=== PATIENT | female | born 1975 | race American Indian/Alaskan Native ===

== ENCOUNTER 2022-01-23 15:10 | Emergency (ER) | payer OTHER ==
[2022-01-23 15:25] VITALS: BP 136/83
--- NOTE | 2022-01-23 16:21 | XRay Report ---
XR knee 1-2V LT, XR hip 2-3V LT INDICATION / CLINICAL INFORMATION: fall x 1day ago. COMPARISON: None available. FINDINGS: Pelvis, left hip: No acute fracture or malalignment. Mild osteoarthritis of both hips. SI joints and pubic symphysis are intact. No focal soft tissue abnormality. Calcified uterine fibroid. Left knee: No acute fracture or malalignment. No joint effusion. IMPRESSION: No acute osseous findings of the left hip or left knee. Signer Name: Gael Chauhan MD Signed: 01/23/2022 4:17 PM Workstation Name: [id number] (formerly known as [id number]
[2022-01-23] MEDS ORDERED: IBUPROFEN 800 MG TAB PO ONE (16:47)
--- NOTE | 2022-01-23 16:47 | Emergency Department Report ---
ED Fall HPI - General Chief Complaint: Fall Stated Complaint: L KNEE AND HIP PAIN AFTER FALL Time Seen by Provider: 01/23/22 16:27 Source: patient Mode of arrival: Ambulatory - History of Present Illness Initial Comments: 46 yo comes to ER sp mechanical fall yesterday. Pt slipped and fell on left hip and rotated her left knee. co left hip and knee pain Fall was witnessed. No down time. Ambulatory after fall and ambulatory to ER today. Denies hitting her head. Complaint: fall -: days(s) Fall From: standing Fall Witnessed: yes, by family Place Fall Occurred: home Loss of Consciousness: none Prolonged Down Time?: no Symptoms Prior to Fall: none Location - Extremities: Left: Knee Severity: mild Severity scale (0 -10): 3 Quality: aching Context: tripped/slipped Associated Symptoms: denies - Related Data Previous Rx's Medication Instructions Recorded Last Taken Type Ibuprofen [Motrin] 800 mg PO Q8HR PRN #30 tablet 01/23/22 Unknown Rx Allergies Allergy/AdvReac Type Severity Reaction Status Date / Time No Known Allergies Allergy Unverified 01/23/22 15:26 ED Review of Systems ROS: Stated complaint: L KNEE AND HIP PAIN AFTER FALL Other details as noted in HPI Comment: All other systems reviewed and negative ED Past Medical Hx - Past Medical History Previous Medical History?: Yes Hx Hypertension: Yes Hx Diabetes: Yes Hx Arthritis: Yes - Surgical History Past Surgical History?: No - Family History Family history: no significant - Social History Smoking Status: Current Every Day Smoker Substance Use Type: Alcohol - Medications Home Medications: Home Medications Medication Instructions Recorded Confirmed Last Taken Type Ibuprofen [Motrin] 800 mg PO Q8HR PRN #30 tablet 01/23/22 Unknown Rx ED Physical Exam - General Limitations: No Limitations General appearance: alert, in no apparent distress - Head Head exam: Present: atraumatic, normocephalic - Eye Eye exam: Present: normal appearance - ENT ENT exam: Present: mucous membranes moist - Neck Neck exam: Present: normal inspection - Respiratory Respiratory exam: Present: normal lung sounds bilaterally. Absent: respiratory distress - Cardiovascular Cardiovascular Exam: Present: regular rate, normal rhythm. Absent: systolic murmur, diastolic murmur, rubs, gallop - GI/Abdominal GI/Abdominal exam: Present: soft, normal bowel sounds - Extremities Exam Extremities exam: Present: normal inspection - Back Exam Back exam: Present: normal inspection - Neurological Exam Neurological exam: Present: alert, oriented X3 - Psychiatric Psychiatric exam: Present: normal affect, normal mood - Skin Skin exam: Present: warm, dry, intact, normal color. Absent: rash ED Course Vital Signs 01/23/22 15:21 Temperature 99.1 F Pulse Rate 84 Respiratory 18 Rate Blood Pressure 136/83 [Left] O2 Sat by Pulse 100 Oximetry ED Medical Decision Making - Radiology Data Radiology results: report reviewed, image reviewed nap - Medical Decision Making Vital Signs 01/23/22 15:21 Temperature 99.1 F Pulse Rate 84 Respiratory 18 Rate Blood Pressure 136/83 [Left] O2 Sat by Pulse 100 Oximetry xray noted neuro intact No c spine tenderess VSS ambulatory no pain on palp of the hip or knee she reports just an ache neurovasc intact educated on RICE treatment medicated with motrin for pain Pt being dc home with dc plan of care including diet, meds, activity and follow up. - Differential Diagnosis ro fx Critical care attestation.: If time is entered above; I have spent that time in minutes in the direct care of this critically ill patient, excluding procedure time. ED Disposition Clinical Impression: Fall Qualifiers: Encounter type: initial encounter Qualified Code(s): W19.XXXA - Unspecified fall, initial encounter Contusion Qualifiers: Encounter type: initial encounter Disposition: 01 HOME / SELF CARE / HOMELESS Is pt being admited?: No Does the pt Need Aspirin: No Condition: Stable Instructions: Contusion Additional Instructions: REST ICE ELEVATE THE AFFECTED AREAS FOLLOW UP WITH PCP REFERRAL BELOW MED ORDERED TODAY FOR PAIN TYLENOL OVER THE COUNTER CAN ALSO BE USED Prescriptions: Ibuprofen [Motrin] 800 mg PO Q8HR PRN #30 tablet PRN Reason: Pain, Moderate (4-6) Referrals: DION GODINEZ MD [Staff Physician] - 3-5 Days Forms: Work/School Release Form(ED) Time of Disposition: 16:43
== END 2022-01-23 17:00 | disposition home or self-care (01) ==
LOC: ED 15:10
DX: S70.02XA Contusion of left hip, initial encounter (principal); S80.02XA Contusion of left knee, initial encounter; I10 Essential (primary) hypertension; E11.9 Type 2 diabetes mellitus without complications; M19.90 Unspecified osteoarthritis, unspecified site; F17.200 Nicotine dependence, unspecified, uncomplicated; Z72.89 Other problems related to lifestyle; Z79.899 Other long term (current) drug therapy; W18.39XA Other fall on same level, initial encounter; Y93.89 Activity, other specified; Y92.89 Other specified places as the place of occurrence of the external cause; Y99.8 Other external cause status
CPT/HCPCS: 99283